=== PATIENT | male | born 1990 | race Caucasian/White ===

== ENCOUNTER 2016-07-16 09:36 | Inpatient (IN) | payer SELFPAY ==
[2016-07-16] VITALS (9 sets, daily range): BP systolic 109–141; BP diastolic 56–87; PULSE 76–123; RESP 16–18; TEMP 97.6; O2SAT 95–100
[~2016-07-16] VITALS: Ht 198.1 cm; Wt 90.6 kg
[~2016-07-16 09:36] MED LIST: OXYM.05%I NASAL
--- NOTE | 2016-07-16 09:45 | PD ---
HPI Chief Complaint: Alcohol/Drug Intoxication Time Seen by Provider: 09:43 Travel History International Travel<30 days: No Contact w/Intl Traveler<30days: No Traveled to known affect area: No History of Present Illness HPI This is a 26-year-old male who presents to the emergency department having been found passed out on the floor by his friends. The patient uses recreational heroin. It's unclear how long he was on the ground for. EMS found him and he was cyanotic and unresponsive. They administered 0.8 of Narcan patient regained consciousness. Here in the emergency department patient reports he feels scared but denies any complaints. PFSH Past Medical History Diminished Hearing: No Endocrine: No Immune Disorder: No Neurologic: No Seizures: No Social History Alcohol Use: No Tobacco Use: Yes (1ppd) Substance Use: No Allergies-Medications (Allergen,Severity, Reaction): Coded Allergies: No Known Allergies (Verified , 07/16/16) Reported Meds & Prescriptions Reported Meds & Active Scripts Active Review of Systems Except as stated in HPI: all other systems reviewed are Neg Physical Exam Narrative GENERAL:Well appearing, no acute distress SKIN: Warm and dry. HEAD: Atraumatic. Normocephalic. EYES: Pupils equal and round. No injection or drainage. ENT: Moist mucous membranes NECK: Trachea midline. CARDIOVASCULAR: Tachycardic.. No murmur appreciated. RESPIRATORY: Coarse breath sounds in the left lung base. GASTROINTESTINAL: Abdomen soft, non-tender, nondistended. MUSCULOSKELETAL: No obvious deformities. NEUROLOGICAL: Awake and alert. No obvious cranial nerve deficits. Moving all extremities. PSYCHIATRIC: Appropriate mood and affect; insight and judgment normal. Data Data Last Documented VS Vital Signs Date Time Temp Pulse Resp B/P Pulse Ox O2 Delivery O2 Flow Rate FiO2 07/16/16 09:44 94 2 07/16/16 09:44 16 07/16/16 09:44 107 141/87 Nasal Cannula 07/16/16 09:38 97.6 Orders Complete Blood Count With Diff (07/16/16 09:43) Comprehensive Metabolic Panel (07/16/16 09:43) ^ Insert Iv (07/16/16 09:43) Creatine Kinase (Cpk) (07/16/16 09:43) Chest, Single Ap (07/16/16 ) Sodium Chlor 0.9% 1000 Ml Inj (Ns 1000 M (07/16/16 10:15) Sodium Chlor 0.9% 1000 Ml Inj (Ns 1000 M (07/16/16 10:15) Urinalysis - C+S If Indicated (07/16/16 10:49) Ceftriaxone Inj (Rocephin Inj) (07/16/16 11:30) Azithromycin Inj (Zithromax Inj) (07/16/16 11:30) Lactic Acid (07/16/16 11:24) Admit Order (Ed Use Only) (07/16/16 11:24) Blood Culture (07/16/16 11:25) Labs Laboratory Tests Test 07/16/16 07/16/16 09:58 11:19 White Blood Count 14.6 TH/MM3 Red Blood Count 4.73 MIL/MM3 Hemoglobin 14.2 GM/DL Hematocrit 42.3 % Mean Corpuscular Volume 89.3 FL Mean Corpuscular Hemoglobin 30.0 PG Mean Corpuscular Hemoglobin 33.5 % Concent Red Cell Distribution Width 13.3 % Platelet Count 250 TH/MM3 Mean Platelet Volume 7.8 FL Neutrophils (%) (Auto) 89.2 % Lymphocytes (%) (Auto) 8.9 % Monocytes (%) (Auto) 1.6 % Eosinophils (%) (Auto) 0.1 % Basophils (%) (Auto) 0.2 % Neutrophils # (Auto) 13.0 TH/MM3 Lymphocytes # (Auto) 1.3 TH/MM3 Monocytes # (Auto) 0.2 TH/MM3 Eosinophils # (Auto) 0.0 TH/MM3 Basophils # (Auto) 0.0 TH/MM3 CBC Comment DIFF FINAL Differential Comment Sodium Level 139 MEQ/L Potassium Level 5.0 MEQ/L Chloride Level 105 MEQ/L Carbon Dioxide Level 21.7 MEQ/L Anion Gap 12 MEQ/L Blood Urea Nitrogen 13 MG/DL Creatinine 1.47 MG/DL Estimat Glomerular Filtration 57 ML/MIN Rate Random Glucose 381 MG/DL Calcium Level 7.7 MG/DL Total Bilirubin 0.2 MG/DL Aspartate Amino Transf 27 U/L (AST/SGOT) Alanine Aminotransferase 81 U/L (ALT/SGPT) Alkaline Phosphatase 71 U/L Total Creatine Kinase 88 U/L Total Protein 7.1 GM/DL Albumin 3.7 GM/DL Urine Color YELLOW Urine Turbidity CLEAR Urine pH 5.5 Urine Specific [place] 1.015 Urine Protein TRACE mg/dL Urine Glucose (UA) 1000 mg/dL Urine Ketones NEG mg/dL Urine Occult Blood NEG Urine Nitrite NEG Urine Bilirubin NEG Urine Urobilinogen LESS THAN 2.0 MG/DL Urine Leukocyte Esterase NEG Urine RBC LESS THAN 1 /hpf Urine WBC 1 /hpf Urine Hyaline Casts 5 /lpf Urine Granular Casts 4 /lpf Urine Mucus FEW /lpf Microscopic Urinalysis Comment CULT NOT INDICATED MDM Medical Decision Making Medical Screen Exam Complete: Yes Emergency Medical Condition: Yes Interpretation(s) Leukocytosis with left shift Creatinine is 1.5 Urinalysis: No infection Chest x-ray: Diffuse mid left lung infiltrate Differential Diagnosis Opiate overdose, electrolyte abnormality, rhabdomyolysis, urinary tract infection, pneumonia Narrative Course This is a 26-year-old male who presents to the emergency department following an acute opiate overdose. He is placed on a monitor and an IV was established. Labs are obtained which demonstrated a leukocytosis. Chest x-ray was obtained which demonstrates a left midlung infiltrate consistent with pneumonia. Patient desaturates to the mid 80s off of oxygen. I think he requires admission for IV antibiotics. Physician Communication Physician Communication Discussed with Dr. Quintero Diagnosis Primary Impression: Pneumonia Qualified Code: J69.0 - Aspiration pneumonia of left lung, unspecified aspiration pneumonia type, unspecified part of lung Additional Impression: Opiate overdose Qualified Code: T40.601A - Opiate overdose, accidental or unintentional, initial encounter Admitting Information Admitting Physician Requests: Admit Scripts No Active Prescriptions or Reported Meds Isabel Bro MD Jul 16, 2016 09:45
[2016-07-16] MEDS ORDERED: SODIUM CHLOR 0.9% 1000 ML INJ 1,000 ML IV ONE ×2 (10:15)
[2016-07-16 10:16] LABS: BASOPHIL % 0.2 % (0.0-2.0); EOSINOPHIL % 0.1 % (0.0-4.0); HEMATOCRIT 42.3 % (39.0-51.0); HEMO FLAGS DIFF FINAL; LYMPH % 8.9 % (9.0-44.0); LYMPHOCYTE # 1.3 TH/MM3 (1.0-4.8); MEAN CELL VOLUME 89.3 FL (80.0-100.0); MEAN CORPUSCULAR HGB CONC 33.5 % (32.0-36.0); MONO % 1.6 % (0.0-8.0); NEUT % 89.2 % (16.0-70.0); PLATELET COUNT 250 TH/MM3 (150-450); RED BLOOD COUNT 4.73 MIL/MM3 (4.50-5.90); RED CELL DISTRIBUTION WIDTH 13.3 % (11.6-17.2); WHITE BLOOD COUNT 14.6 TH/MM3 (4.0-11.0)
[2016-07-16 10:34] LABS: ANION GAP 12 MEQ/L (5-15); AST (GOT) 27 U/L (15-37); BICARBONATE 21.7 MEQ/L (21.0-32.0); BLOOD UREA NITROGEN 13 MG/DL (7-18); CHLORIDE 105 MEQ/L (98-107); GLOMERULAR FILTRATION RATE 57 ML/MIN (>89); SODIUM (NA) 139 MEQ/L (136-145)
[2016-07-16 10:38] LABS: ALKALINE PHOSPHATASE 71 U/L (45-117); ALT (GPT) 81 U/L (12-78); TOTAL BILIRUBIN ADULT 0.2 MG/DL (0.2-1.0)
[2016-07-16 10:41] LABS: CREATINE KINASE 88 U/L (39-308)
--- NOTE | 2016-07-16 11:18 | RADRPT ---
EXAM DATE/TIME: 07/16/2016 10:15 [place] COMPARISON: CHEST PA & LAT, June 25, 2016, 11:01. CT PULMONARY ANGIOGRAM, June 26, 2016, 17:47. INDICATIONS : Shortness of breath. MEDICAL HISTORY : None. SURGICAL HISTORY : None. ENCOUNTER: Initial ACUITY: 1 day PAIN SCORE: 0/10 LOCATION: Bilateral chest FINDINGS: Diffuse mild left lung infiltrate is present. The right lung is clear. No significant effusion is julio césar pected. Cardiomediastinal contours are grossly stable accounting for differences in technique and pro jection. CONCLUSION: Diffuse mild left lung infiltrate Victor Manuel Tracy MD on July 16, 2016 at 11:16 Board Certified Radiologist. This report was verified electronically.
[2016-07-16] MEDS ORDERED: cefTRIAXone INJ 1,000 MG in SODIUM CHLORIDE 0.9% INJ 100 ML IV ONE (11:30)
[2016-07-16] MEDS ORDERED: AZITHROMYCIN INJ 500 MG in SODIUM CHLOR 0.9% 250 ML INJ 250 ML IV ONE (11:30)
--- NOTE | 2016-07-16 11:37 | HHI.HP ---
[facility] Service Family Medicine Primary Care Physician No Primary Care Physician Admission Diagnosis pneumonia, opiate overdose Diagnoses: International Travel<30 Days: No Contact w/Intl Traveler<30days: No Known Affected Area: No History of Present Illness This is a 26 year old male with a history of drug abuse who admits to overdosing on heroin last night. His friends found him this morning "passed out " and called 911. He responded to 0.8 mg narcan in the field. His chest xray shows left lung pneumonia. Regarding his recent drug history, he had been clean for 100 days, but had a relapse last night. He snorted approximately 1 gram of heroin. He denies any IV drugs or that any other drugs were used. In the emergency room upon our evaluation, he feels tired and fatigued. He has had a mild cough since his previous admission, but this has been improving. It is nonproductive. Denies fever or chills. (Kenn Quintero MD R2) Review of Systems Constitutional: COMPLAINS OF: Fatigue, DENIES: Fever, Chills Eyes: DENIES: Blurred vision, Diplopia Ears, nose, mouth, throat: DENIES: Hearing loss, Vertigo Respiratory: COMPLAINS OF: Cough, Shortness of breath, DENIES: Sputum production Cardiovascular: DENIES: Chest pain, Palpitations Gastrointestinal: DENIES: Abdominal pain, Constipation, Diarrhea, Nausea, Vomiting Genitourinary: DENIES: Urgency, Dysuria Neurologic: DENIES: Headache Psychiatric: DENIES: Confusion, Mood changes (Kenn Quintero MD R2) Past Family Social History Past Medical History Hepatitis C Past Surgical History Breast tissue removed as a child, benign. Reported Medications Reported Meds & Active Scripts Active (Kenn Quintero MD R2) Allergies: Coded Allergies: No Known Allergies (Verified , 07/16/16) Active Ordered Medications Active Medications Azithromycin/ Sodium Chloride (Zithromax Inj/ NS 250 ml Inj) 250 ml @ 250 mls/ hr ONCE ONCE IV; Start 07/16/16 at 11:30; Stop 07/16/16 at 12:29 Ceftriaxone Sodium 1000 mg/ Sodium Chloride 100 ml @ 200 mls/hr ONCE ONCE IV; Start 07/16/16 at 11:30; Stop 07/16/16 at 11:59 Sodium Chloride 1,000 ml @ 999 mls/hr BOLUS ONCE IV Last administered on t 10:16; Admin Dose 999 MLS/HR; Start 07/16/16 at 10:15; Stop 07/16/16 at 11:15 ; Status DC Sodium Chloride 1,000 ml @ 999 mls/hr BOLUS ONCE IV; Start 07/16/16 at 10:15; Stop 07/16/16 at 11:15; Status DC Family History Father with heart disease that began in his 40s. Alive. Atrial fibrillation. HI X 2, he was 46 Mother: healthy. hypoglycemia, anemia No children Social History Tobacco: 1 PPD since 14 years old Alcohol: quit 6 months ago. Illicit: heroin IV and snorting. "All of them." Cocaine, oxycontin He is in a recovery center for his drug abuse history. (Kenn Quintero MD R2) Physical Exam Vital Signs Vital Signs Date Time Temp Pulse Resp B/P Pulse Ox O2 Delivery O2 Flow Rate FiO2 07/16/16 09:44 94 2 07/16/16 09:44 16 07/16/16 09:44 107 16 141/87 100 Nasal Cannula 4 07/16/16 09:38 97.6 123 18 141/87 95 Physical Exam GENERAL: This is a well-nourished, well-developed patient, in no apparent distress. Appears tired SKIN: No rashes, ecchymoses or lesions. Cool and dry. HEAD: Atraumatic. Normocephalic. No temporal or scalp tenderness. EYES: Pupils equal round and reactive. Extraocular motions intact. No scleral icterus. No injection or drainage. ENT: Nose without bleeding, purulent drainage or septal hematoma. Throat without erythema, tonsillar hypertrophy or exudate. Uvula midline. Airway patent. NECK: Trachea midline. No JVD or lymphadenopathy. Supple, nontender, no meningeal signs. CARDIOVASCULAR: Regular rate and rhythm without murmurs, gallops, or rubs. RESPIRATORY: Left-sided crackles. Right side is clear. Good air movement. GASTROINTESTINAL: Abdomen soft, non-tender, nondistended. No hepato-splenomegaly , or palpable masses. No guarding. MUSCULOSKELETAL: Extremities without clubbing, cyanosis, or edema. No joint tenderness, effusion, or edema noted. No calf tenderness. Negative Homans sign bilaterally. NEUROLOGICAL: Awake and alert. Cranial nerves II through XII intact. Motor and sensory grossly within normal limits. Five out of 5 muscle strength in all muscle groups. Normal speech. Laboratory Laboratory Tests Test 07/16/16 09:58 White Blood Count 14.6 Red Blood Count 4.73 Hemoglobin 14.2 Hematocrit 42.3 Mean Corpuscular Volume 89.3 Mean Corpuscular Hemoglobin 30.0 Mean Corpuscular Hemoglobin 33.5 Concent Red Cell Distribution Width 13.3 Platelet Count 250 Mean Platelet Volume 7.8 Neutrophils (%) (Auto) 89.2 Lymphocytes (%) (Auto) 8.9 Monocytes (%) (Auto) 1.6 Eosinophils (%) (Auto) 0.1 Basophils (%) (Auto) 0.2 Neutrophils # (Auto) 13.0 Lymphocytes # (Auto) 1.3 Monocytes # (Auto) 0.2 Eosinophils # (Auto) 0.0 Basophils # (Auto) 0.0 CBC Comment DIFF FINAL Differential Comment Sodium Level 139 Potassium Level 5.0 Chloride Level 105 Carbon Dioxide Level 21.7 Anion Gap 12 Blood Urea Nitrogen 13 Creatinine 1.47 Estimat Glomerular Filtration 57 Rate Random Glucose 381 Calcium Level 7.7 Total Bilirubin 0.2 Aspartate Amino Transf 27 (AST/SGOT) Alanine Aminotransferase 81 (ALT/SGPT) Alkaline Phosphatase 71 Total Creatine Kinase 88 Total Protein 7.1 Albumin 3.7 (Kenn Quintero MD R2) Result Diagram: 07/16/16 0958 07/16/16 0958 Imaging Last Impressions Chest X-Ray 07/16/16 0000 Signed Impressions: Service Date/Time: Saturday, July 16, 2016 10:15 - CONCLUSION: Diffuse mild left lung infiltrate Victor Manuel Tracy MD (Kenn Quintero MD R2) Assessment and Plan Assessment and Plan 26-year-old male presents with heroin overdose and likely aspiration pneumonia. He is septic with elevated heart rate, increased white blood cell count, pneumonia on x-ray. We'll treat with IV fluids, antibiotics as below. Code Status Full Discussed Condition With Dr. Leon Finch (Kenn Quintero MD R2) Attending Attestation Patient seen and examined. Case reviewed and discussed with the resident team. Agree with plan of care as discussed with me and documented in the resident note. (Alesia Quintero MD) Problem List: (1) Sepsis Status: Acute Plan: Patient meets sepsis criteria with tachycardia, leukocytosis, pneumonia on x-ray. Patient received ceftriaxone and azithromycin in the emergency room. Given history, strongly suggesting aspiration pneumonia, will switch to clindamycin. -Lactic acid 1.0 -Clindamycin 600 mg IV every 8 hours (started 07/16) -Normal saline 140 mL's per hour -Follow blood cultures -Repeat labs in a.m. (2) Pneumonia Status: Acute Plan: Suspect aspiration pneumonia given history See treatment above (3) Heroin overdose Status: Acute Plan: Responded to Narcan. Pot Fluxer cessation (4) Hepatitis C antibody test positive Status: Chronic Plan: Patient to get treated as an outpatient. (5) Acute kidney injury Status: Acute Plan: Creatinine mildly elevated at 1.47; likely prerenal origin Expect improvement with IV fluids. Monitor with daily labs. (6) Elevated glucose Status: Acute Plan: Patient's glucose on admission 381 Do not suspect diabetes We'll follow with daily labs. (7) FEN/PPX Status: Acute Plan: Fluids: Normal saline at 140 mL's per hour Electrolytes: Monitor and replace when necessary Nutrition: Regular Diet Prophylaxis: SCDs (Kenn Quintero MD R2) Physician Certification 2 Midnight Certification Type: Admission for Inpatient Services Order for Inpatient Services The services are ordered in accordance with Medicare regulations or non- Medicare payer requirements, as applicable. In the case of services not specified as inpatient-only, they are appropriately provided as inpatient services in accordance with the 2-midnight benchmark. Estimated LOS (days): 2 days is the estimated time the patient will need to remain in the hospital, assuming treatment plan goals are met and no additional complications. Post-Hospital Plan: Home (Kenn Quintero MD R2) Problem Qualifiers (1) Pneumonia: Qualified Code: J69.0 - Aspiration pneumonia of left lung, unspecified aspiration pneumonia type, unspecified part of lung Kenn Quintero MD R2 Jul 16, 2016 11:37 Alesia Quintero MD Jul 16, 2016 18:43
[2016-07-16 11:45] LABS: BLOOD, URINE NEG (NEG); COMMENT (UR) CULT NOT INDICATED; CULTURE IF INDICATED CULT NOT INDICATED; GLUCOSE,URINE 1000 mg/dL (NEG); GRANULAR CAST, URINE 4 /lpf; HYALINE CAST, URINE 5 /lpf (RARE); KETONE, URINE NEG (NEG); MUCUS URINE FEW /lpf (OCC); NITRITE,URINE NEG (NEG); PH, URINE 5.5 (5.0-8.5); URINE COLOR YELLOW (YELLW/STRAW)
[2016-07-16] MEDS ORDERED: ACETAMINOPHEN 325 MG TAB PO PRN (12:00)
[2016-07-16] MEDS ORDERED: SODIUM CHLORIDE 0.9% FLUSH 5 ML FLUSH FLUSH PRN (12:00)
[2016-07-16] MEDS ORDERED: ONDANSETRON HCL 4 MG/2 ML VIAL IVP PRN (12:00)
[2016-07-16] MEDS ORDERED: NALOXONE HCL 0.4 MG/ML AMP IV PRN (12:00)
--- NOTE | 2016-07-16 12:34 | HHI.FPPN ---
Subjective Remarks Pt. seen, examined and discussed with the medicine team. This is a 26 yo male chronic substance ("all of them") abuser who is one day short of 6 months clean when he snorted heroin last night. Friends found him unresponsive, called [facility] and he was brought to ED. He had been kicked out of his facility for 3 days for breaking the rules. Quit Etoh 6 months ago. Smokes 1 ppd for 12 years. See H&P for this admission for additional historical information. Complete ROS is obtained, occasional cough, some current confusion, varicose veins, otherwise all other systems negative. He is FULL CODE. Objective Vitals Vital Signs Date Time Temp Pulse Resp B/P Pulse Ox O2 Delivery O2 Flow Rate FiO2 07/16/16 11:41 99 16 134/74 98 Nasal Cannula 4 07/16/16 09:44 94 2 07/16/16 09:44 16 07/16/16 09:44 107 16 141/87 100 Nasal Cannula 4 07/16/16 09:38 97.6 123 18 141/87 95 Result Diagram: 07/16/16 0958 07/16/16 0958 Other Results Laboratory Tests Test 07/16/16 07/16/16 07/16/16 09:58 11:19 11:30 White Blood Count 14.6 TH/MM3 Red Blood Count 4.73 MIL/MM3 Hemoglobin 14.2 GM/DL Hematocrit 42.3 % Mean Corpuscular Volume 89.3 FL Mean Corpuscular Hemoglobin 30.0 PG Mean Corpuscular Hemoglobin 33.5 % Concent Red Cell Distribution Width 13.3 % Platelet Count 250 TH/MM3 Mean Platelet Volume 7.8 FL Neutrophils (%) (Auto) 89.2 % Lymphocytes (%) (Auto) 8.9 % Monocytes (%) (Auto) 1.6 % Eosinophils (%) (Auto) 0.1 % Basophils (%) (Auto) 0.2 % Neutrophils # (Auto) 13.0 TH/MM3 Lymphocytes # (Auto) 1.3 TH/MM3 Monocytes # (Auto) 0.2 TH/MM3 Eosinophils # (Auto) 0.0 TH/MM3 Basophils # (Auto) 0.0 TH/MM3 CBC Comment DIFF FINAL Differential Comment Sodium Level 139 MEQ/L Potassium Level 5.0 MEQ/L Chloride Level 105 MEQ/L Carbon Dioxide Level 21.7 MEQ/L Anion Gap 12 MEQ/L Blood Urea Nitrogen 13 MG/DL Creatinine 1.47 MG/DL Estimat Glomerular Filtration 57 ML/MIN Rate Random Glucose 381 MG/DL Calcium Level 7.7 MG/DL Total Bilirubin 0.2 MG/DL Aspartate Amino Transf 27 U/L (AST/SGOT) Alanine Aminotransferase 81 U/L (ALT/SGPT) Alkaline Phosphatase 71 U/L Total Creatine Kinase 88 U/L Total Protein 7.1 GM/DL Albumin 3.7 GM/DL Urine Color YELLOW Urine Turbidity CLEAR Urine pH 5.5 Urine Specific [place] 1.015 Urine Protein TRACE mg/dL Urine Glucose (UA) 1000 mg/dL Urine Ketones NEG mg/dL Urine Occult Blood NEG Urine Nitrite NEG Urine Bilirubin NEG Urine Urobilinogen LESS THAN 2.0 MG/DL Urine Leukocyte Esterase NEG Urine RBC LESS THAN 1 /hpf Urine WBC 1 /hpf Urine Hyaline Casts 5 /lpf Urine Granular Casts 4 /lpf Urine Mucus FEW /lpf Microscopic Urinalysis Comment CULT NOT INDICATED Lactic Acid Level 1.0 mmol/L Imaging Last Impressions Chest X-Ray 07/16/16 0000 Signed Impressions: Service Date/Time: Saturday, July 16, 2016 10:15 - CONCLUSION: Diffuse mild left lung infiltrate Victor Manuel Tracy MD Objective Remarks O. CONSTITUTIONAL/GEN: normally nourished, in NAD. EYES: conjunctiva normal, PERRLA, EOMI. ENT: Mouth and pharynx normal. NECK: Supple, no lymphadenopathy. LUNGS: clear A-P, respiratory effort is normal. CARDIOVASCULAR: RR without murmur or gallop. No significant edema. GI/ABD: soft without masses, without organomegaly. : no CVA tenderness NEURO: No focal deficits except for mild somnolence SKIN: color normal, no rashes noted. Scars both anterior chest garcia from remote breast surgery HEME/LYMPH: no bruising, petechia or significant adenopathy MUSC: back is normal in appearance. Extremities are normal in appearance except for varicosities both LE> PSYCH/MENTAL STATUS: Alert and oriented x 3 but somnolent A/P Assessment and Plan Left diffuse pneumonia s/p heroin overdose and unresponsiveness. Suspect aspiration. Attending Attestation Patient seen and examined. Case reviewed and discussed with the resident team. Agree with plan of care as discussed with me and documented in the resident note. Problem List: (1) Sepsis Status: Acute (2) Pneumonia Status: Acute Alesia Quintero MD Jul 16, 2016 12:34
[2016-07-16] MEDS: CLINDAMYCIN INJ 600 MG in SODIUM CHLORIDE 0.9% INJ 100 ML IV SCH ×2 (13:48→22:00)
[2016-07-16] MEDS: SODIUM CHLOR 0.9% 1000 ML INJ 1,000 ML IV SCH (13:49)
[2016-07-16] MEDS: SODIUM CHLORIDE 0.9% FLUSH 5 ML FLUSH FLUSH SCH (21:00)
[2016-07-17] VITALS: BP 123/65; PULSE 87; RESP 18; TEMP 98.2; O2SAT 99
[2016-07-17] MEDS: SODIUM CHLOR 0.9% 1000 ML INJ 1,000 ML IV SCH ×3 (02:17→09:26)
[2016-07-17] MEDS: CLINDAMYCIN INJ 600 MG in SODIUM CHLORIDE 0.9% INJ 100 ML IV SCH (05:43)
[2016-07-17 07:09] LABS: AUTOMATED NEUTROPHIL # 3.8 TH/MM3 (1.8-7.7); BASOPHIL % 0.3 % (0.0-2.0); EOSINOPHIL # 0.1 TH/MM3 (0-0.4); EOSINOPHIL % 1.2 % (0.0-4.0); HEMATOCRIT 36.4 % (39.0-51.0); HEMO FLAGS DIFF FINAL; LYMPH % 40.6 % (9.0-44.0); LYMPHOCYTE # 2.9 TH/MM3 (1.0-4.8); MEAN CORPUSCULAR HGB CONC 34.1 % (32.0-36.0); MONO % 5.9 % (0.0-8.0); PLATELET COUNT 179 TH/MM3 (150-450); RED BLOOD COUNT 4.14 MIL/MM3 (4.50-5.90); RED CELL DISTRIBUTION WIDTH 13.4 % (11.6-17.2); WHITE BLOOD COUNT 7.2 TH/MM3 (4.0-11.0)
[2016-07-17 07:13] LABS: BICARBONATE 30.8 MEQ/L (21.0-32.0); POTASSIUM 3.7 MEQ/L (3.5-5.1)
[2016-07-17 07:42] VITALS: BP 110/54; PULSE 72; RESP 16; TEMP 98.4; O2SAT 96
[2016-07-17] MEDS ORDERED: CLIN1CAP6 PO (08:54)
--- NOTE | 2016-07-17 08:54 | HHI.DCPOC ---
Discharge Care Plan Diagnosis: (1) Pneumonia (2) Heroin overdose Goals to Promote Your Health * To prevent worsening of your condition and complications * To maintain your health at the optimal level Directions to Meet Your Goals Take your medications as prescribed Follow your dietary instruction Follow activity as directed Keep your appointments as scheduled Take your immunizations and boosters as scheduled If your symptoms worsen call your PCP, if no PCP go to Urgent Care Center or Emergency Room Smoking is Dangerous to Your Health. Avoid second hand smoke Call the 24-hour hour crisis hotline for domestic abuse at Kenn Quintero MD R2 Jul 17, 2016 08:54
[2016-07-17] MEDS: SODIUM CHLORIDE 0.9% FLUSH 5 ML FLUSH FLUSH SCH (09:00)
--- NOTE | 2016-07-17 10:49 | HHI.FPPN ---
Subjective Remarks No acute events overnight. Afebrile, vital signs stable. Patient denies any pain at this time. Denies shortness of breath. (Juju Vazquez MD R3) Objective Vitals Vital Signs Date Time Temp Pulse Resp B/P Pulse Ox O2 Delivery O2 Flow Rate FiO2 07/17/16 07:42 98.4 72 16 110/54 96 07/17/16 00:00 98.2 87 18 123/65 99 07/16/16 21:43 78 17 118/56 94 07/16/16 17:00 88 16 114/62 100 Room Air 07/16/16 16:00 76 16 117/56 100 Room Air 2 07/16/16 14:46 82 16 109/64 100 Room Air 2 07/16/16 13:12 92 16 115/59 99 Nasal Cannula 4 07/16/16 12:58 Nasal Cannula 4.00 07/16/16 12:26 96 16 128/73 98 Nasal Cannula 4 07/16/16 11:41 99 16 134/74 98 Nasal Cannula 4 I/O 07/16/16 07/16/16 07/16/16 07/17/16 07/17/16 07/17/16 07:00 15:00 23:00 07:00 15:00 23:00 Intake Total 480 ml Balance 480 ml Intake Oral 480 ml # Voids 2 # Bowel Movements 0 (Juju Vazquez MD R3) Result Diagram: 07/17/16 0510 07/17/16 0510 Objective Remarks O. CONSTITUTIONAL/GEN: normally nourished, in NAD. EYES: conjunctiva normal, PERRLA, EOMI. ENT: Mouth and pharynx normal. NECK: Supple, no lymphadenopathy. LUNGS: clear A-P, respiratory effort is normal. CARDIOVASCULAR: RR without murmur or gallop. No significant edema. GI/ABD: soft without masses, without organomegaly. : no CVA tenderness NEURO: No focal deficits except for mild somnolence SKIN: color normal, no rashes noted. Scars both anterior chest garcia from remote breast surgery HEME/LYMPH: no bruising, petechia or significant adenopathy MUSC: back is normal in appearance. Extremities are normal in appearance except for varicosities both LE> PSYCH/MENTAL STATUS: Alert and oriented x 3 (Juju Vazquez MD R3) A/P Assessment and Plan 26-year-old male presents with heroin overdose and likely aspiration pneumonia. He is septic with elevated heart rate, increased white blood cell count, pneumonia on x-ray. Discharge Planning Discharged today, per patient he will resume living in a sober house (Juju Vazquez MD R3) Attending Attestation Patient seen and examined. Case reviewed and discussed with the resident team. Agree with plan of care as discussed with me and documented in the resident note. (Alesia Quintero MD) Problem List: (1) Sepsis Status: Resolved Plan: Patient met sepsis criteria with tachycardia, leukocytosis, pneumonia on x-ray. Patient received ceftriaxone and azithromycin in the emergency room. Given history, strongly suggesting aspiration pneumonia, he was switched to clindamycin. Patient recovered well and is no longer tachycardic. Leukocytosis has resolved. -Lactic acid 1.0, 0.7 today -Clindamycin 600 mg IV every 8 hours (started 07/16), she will be discharged on by mouth clindamycin -Normal saline 140 mL's per hour -Follow blood cultures (2) Pneumonia Status: Acute Plan: Suspect aspiration pneumonia given history See treatment above (3) Heroin overdose Status: Acute Plan: Responded to Narcan. Elevator Service Technician cessation (4) Hepatitis C antibody test positive Status: Chronic Plan: Patient to get treated as an outpatient. (5) Acute kidney injury Status: Resolved Plan: Creatinine mildly elevated at 1.47; likely prerenal origin Improved with IV fluids. 0.99 today. (6) Elevated glucose Status: Acute Plan: Patient's glucose on admission 381, 107 this morning Do not suspect diabetes (7) FEN/PPX Status: Acute Plan: Fluids: Normal saline at 140 mL's per hour Electrolytes: Monitor and replace when necessary Nutrition: Regular Diet Prophylaxis: SCDs (Juju Vazquez MD R3) Problem Qualifiers (1) Pneumonia: Qualified Code: J69.0 - Aspiration pneumonia of left lung, unspecified aspiration pneumonia type, unspecified part of lung Juju Vazquez MD R3 Jul 17, 2016 10:49 Alesia Quintero MD Jul 17, 2016 10:57
== END 2016-07-17 14:31 | disposition home or self-care (01) | DRG 917 ==
LOC: NEPE 09:36 → NEDA 11:27 → NEDH 15:40 → N06B 21:49 → UNDODISIN 07-17 14:15
PROVIDERS: ADMIT Family Medicine; ATTEND Family Medicine
DX: T40.1X1A Poisoning by heroin, accidental (unintentional), initial encounter (principal); A41.9 Sepsis, unspecified organism; J69.0 Pneumonitis due to inhalation of food and vomit; N17.9 Acute kidney failure, unspecified; F14.10 Cocaine abuse, uncomplicated; B19.20 Unspecified viral hepatitis C without hepatic coma; Y92.9 Unspecified place or not applicable; F17.210 Nicotine dependence, cigarettes, uncomplicated; R73.9 Hyperglycemia, unspecified; I83.93 Asymptomatic varicose veins of bilateral lower extremities; Z82.49 Family history of ischemic heart disease and other diseases of the circulatory system
CPT/HCPCS: 71010; 80048; 80053; 81001; 82550; 83605; 85025; 87040; 96360; J0456; J0696; J7030; J7050

== ENCOUNTER 2017-11-12 22:52 | Emergency (ER) | payer SELFPAY ==
[~2017-11-12] VITALS: Ht 198.1 cm; Wt 100.0 kg
[~2017-11-12 22:52] MED LIST changes: +CLIN300C5 PO; -OXYM.05%I NASAL
[2017-11-12 22:57] VITALS: BP 151/77; PULSE 77; RESP 18; TEMP 98.1; O2SAT 99
--- NOTE | 2017-11-12 23:25 | PD ---
HPI Chief Complaint: Cold / Flu Symptoms Time Seen by Provider: 23:12 Travel History International Travel<30 days: No Contact w/Intl Traveler<30days: No Traveled to known affect area: No History of Present Illness HPI Patient is a well-appearing 27-year-old male presenting to the emergency department for evaluation of cough, congestion, and intermittent shortness of breath. Patient states his symptoms started over week ago. He denies any fever , chills, nausea, vomiting, chest pain. Patient has not taken any medications to control his symptoms. He did take ibuprofen at 2130 tonight because he had a headache. Headache is now resolved. Patient is concerned because he has had walking pneumonia in the past. Symptom onset was gradual, symptoms appear to be fluctuating. PFSH Past Medical History Heart Rhythm Problems: Yes Tetanus Vaccination: Unknown Influenza Vaccination: No Past Surgical History Surgical History: No Previous Surgery Other Surgery: Yes Social History Alcohol Use: No Tobacco Use: Yes (1PPD) Substance Use: Yes (Sober x 1.5 years) Allergies-Medications (Allergen,Severity, Reaction): Coded Allergies: No Known Allergies (Verified Adverse Reaction, Unknown, 11/12/17) Reported Meds & Prescriptions Reported Meds & Active Scripts Active Clindamycin (Clindamycin HCl) 300 Mg Cap 300 Mg PO QID Review of Systems Except as stated in HPI: all other systems reviewed are Neg General / Constitutional: No: Fever Eyes: No: Blurred Vision HENT: Positive: Headaches Cardiovascular: No: Chest Pain or Discomfort Respiratory: Positive: Cough, Shortness of Breath, No: Wheezing, Orthopnea, Pleuritic Pain Gastrointestinal: No: Nausea, Vomiting, Abdominal Pain Musculoskeletal: No: Myalgias Neurologic: Positive: Dizziness (With coughing spells) Physical Exam Narrative GENERAL: Well-developed, well-nourished, alert male. Presenting in no acute distress. Patient is well-appearing. SKIN: Warm and dry. HEAD: Atraumatic. Normocephalic. EYES: Pupils equal and round. No scleral icterus. No injection or drainage. ENT: No nasal bleeding or discharge. Mucous membranes pink and moist. NECK: Trachea midline. No JVD. CARDIOVASCULAR: Regular rate and rhythm. RESPIRATORY: No accessory muscle use. Clear to auscultation. Breath sounds equal bilaterally. GASTROINTESTINAL: Abdomen soft, non-tender, nondistended. Hepatic and splenic margins not palpable. MUSCULOSKELETAL: Extremities without clubbing, cyanosis, or edema. No obvious deformities. NEUROLOGICAL: Awake and alert. No obvious cranial nerve deficits. Motor grossly within normal limits. Five out of 5 muscle strength in the arms and legs. Normal speech. PSYCHIATRIC: Appropriate mood and affect; insight and judgment normal. Data Data Last Documented VS Vital Signs Date Time Temp Pulse Resp B/P (MAP) Pulse Ox O2 Delivery O2 Flow Rate FiO2 11/12/17 22:57 98.1 77 18 151/77 (101) 99 Orders Orders Chest, Pa & Lat (11/12/17 ) [facility] Medical Decision Making Medical Screen Exam Complete: Yes Emergency Medical Condition: Yes Interpretation(s) Last Impressions Chest X-Ray 11/12/17 0000 Signed Impressions: Service Date/Time: Sunday, November 12, 2017 23:26 - CONCLUSION: No acute disease. Victor Manuel Tracy MD Vital Signs Date Time Temp Pulse Resp B/P (MAP) Pulse Ox O2 Delivery O2 Flow Rate FiO2 11/12/17 22:57 98.1 77 18 151/77 (101) 99 Differential Diagnosis Allergic rhinitis versus postinfectious cough versus bronchitis versus viral URI Narrative Course Patient is a well-appearing male presenting for evaluation of cough. Patient is concerned he has walking pneumonia. Patient's vital signs are stable, chest x-ray is ordered and pending. Exam is unremarkable. Chest x-ray shows no acute disease. Patient is encouraged to trial symptom management. He has not taken anything but a single dose of Motrin. He is encouraged to follow-up with his primary doctor or return to emergency department for any new or worsening symptoms. Patient was reassured that there were no acute findings on his chest x-ray. Patient will be given a prescription for backup antibiotic however he was strongly advised to take over- the-counter Sudafed, Flonase or Nasonex and use as directed. He verbalized understanding. Patient stable for discharge. Diagnosis Primary Impression: Common cold virus Referrals: Primary Care Physician Patient Instructions: Cold Symptoms (ED), General Instructions Additional Instructions: Follow-up with your primary doctor Trial conservative symptom management with Sudafed or similar agent, Nasonex or Flonase or similar agent, nasal saline wash If you begin antibiotic, complete full course of therapy even if you begin to feel better Return to emergency department for any new or worsening symptoms Med/Other Pt SpecificInfo: Prescription(s) given Scripts Amoxicillin (Amoxicillin) 875 Mg Tab 875 MG PO BID for Infection for 10 Days, #20 TAB 0 Refills Prov: Deirdre Sol 11/13/17 Disposition: 01 DISCHARGE HOME Condition: Stable Deirdre Sol November 12, 2017 23:25
--- NOTE | 2017-11-12 23:39 | RADRPT ---
EXAM DATE/TIME: 11/12/2017 23:26 [facility] COMPARISON: CHEST SINGLE AP, July 16, 2016, 10:15. INDICATIONS : Cough. MEDICAL HISTORY : Substance abuse SURGICAL HISTORY : Breast lumpectomy as a child, benign. ENCOUNTER: Initial ACUITY: 4 - 6 days PAIN SCORE: 0/10 LOCATION: Bilateral chest FINDINGS: PA and lateral views of the chest demonstrate the lungs to be symmetrically aerated without evidence of mass, infiltrate or effusion. The cardiomediastinal contours are unremarkable. Osseous structure s are intact. CONCLUSION: No acute disease. Victor Manuel Tracy MD on November 12, 2017 at 23:37 Board Certified Radiologist. This report was verified electronically.
[2017-11-13] MEDS ORDERED: AMOX875T PO (00:20)
== END 2017-11-13 00:36 | disposition home or self-care (01) ==
LOC: NEPD 22:52
DX: J00 Acute nasopharyngitis [common cold] (principal); R42 Dizziness and giddiness; R51 Headache; F17.200 Nicotine dependence, unspecified, uncomplicated
CPT/HCPCS: 71046; 99283